=== PATIENT | female | born 1985 | race Caucasian/White ===

== ENCOUNTER 2022-08-31 02:39 | Emergency (ER) | payer OTHER, SELFPAY ==
[2022-08-31 02:41] VITALS: BP 110/77; PULSE 83; RESP 16; TEMP 36.6; O2SAT 99; BMI 27.3
[2022-08-31 02:44] VITALS: BMI 27.3
--- NOTE | 2022-08-31 02:47 | XR_ITS ---
PROCEDURE INFORMATION: Exam: XR Right Humerus Exam date and time: 08/31/2022 2:55 AM Age: 37 years old Clinical indication: Right; Patient HX: Patient states she felt a pop. C/O pain upper arm; Additional info: Accident TECHNIQUE: Imaging protocol: Radiologic exam of the right humerus. Views: 2 or more views. COMPARISON: CR XR SHOULDER RT MIN 2V 08/31/2022 2:54 AM FINDINGS: Bones/joints: Normal. Soft tissues: Normal. IMPRESSION: No acute findings.
--- NOTE | 2022-08-31 02:47 | XR_ITS ---
PROCEDURE INFORMATION: Exam: XR Right Forearm Exam date and time: 08/31/2022 3:04 AM Age: 37 years old Clinical indication: Right; Patient HX: Patient states she felt a pop. C/O pain upper arm; Additional info: Injury TECHNIQUE: Imaging protocol: Radiologic exam of the right forearm. Views: 2 views. COMPARISON: CR XR HAND RT MIN 3V 08/31/2022 3:00 AM FINDINGS: Bones/joints: Normal. Soft tissues: Normal. IMPRESSION: No acute findings.
--- NOTE | 2022-08-31 02:47 | XR_ITS ---
PROCEDURE INFORMATION: Exam: XR Right Shoulder Exam date and time: 08/31/2022 2:54 AM Age: 37 years old Clinical indication: Shoulder; Right; Patient HX: Patient states she felt a pop. C/O pain upper arm; Additional info: Injury TECHNIQUE: Imaging protocol: Radiologic exam of the right shoulder. Views: 2 or more views. COMPARISON: No relevant prior studies available. FINDINGS: Bones/joints: Normal. Soft tissues: Normal. IMPRESSION: No acute findings.
--- NOTE | 2022-08-31 02:47 | XR_ITS ---
PROCEDURE INFORMATION: Exam: XR Right Hand Exam date and time: 08/31/2022 3:00 AM Age: 37 years old Clinical indication: Right; Patient HX: States she felt a pop at work. C/O pain upper arm; Additional info: Injury TECHNIQUE: Imaging protocol: Radiologic exam of the right hand. Views: 3 or more views. COMPARISON: CR XR WRIST RT MIN 3V 08/31/2022 2:59 AM FINDINGS: Bones/joints: Normal. Soft tissues: Normal. IMPRESSION: No acute findings.
--- NOTE | 2022-08-31 02:47 | XR_ITS ---
PROCEDURE INFORMATION: Exam: XR Right Wrist Exam date and time: 08/31/2022 2:59 AM Age: 37 years old Clinical indication: Right; Patient HX: Patient states she felt a pop. C/O pain upper arm; Additional info: Injury TECHNIQUE: Imaging protocol: Radiologic exam of the right wrist. Views: 3 or more views. COMPARISON: No relevant prior studies available. FINDINGS: Bones/joints: Normal. Soft tissues: Normal. IMPRESSION: No acute findings.
[2022-08-31 03:00] VITALS: BP 114/71; PULSE 89; O2SAT 99
[2022-08-31 03:30] VITALS: BP 109/65; PULSE 90; O2SAT 99
--- NOTE | 2022-08-31 05:15 | HMH.EDUPEXT ---
Discharge Plan Disposition Patient Disposition: Home, Self-Care Prescriptions Prescriptions: New meloxicam 15 mg tablet 15 mg PO DAILY Qty: 10 0RF Referrals Follow up/Referrals: Provider,Referral, MD [Primary Care Provider] - See instructions Clinical Impressions Clinical Impression: Upper extremity injury Instructions Patient Instructions: DI for Shoulder Pain Discharge ED Provider: Abhishek (ED)[facility] Upper Extremity HPI General Chief Complaint: Extremity Injury, Upper Stated Complaint: Right arm/shoulder pain; WC 08/31/22 Time Seen by Provider: 08/31/22 04:00 Mode of Arrival: Ambulatory Source of Information: Patient and Medical Record Limitations: No Limitations Description of Symptoms (Recalled from ER Triage Doc. by RN): pt states was trying to get a roll of tape unwedged from under steps and feel something pop History of Present Illness HPI narrative: acute injury at work - pulling and heard pop rt shoulder and now with dec rom complaint: injury to: right and shoulder Onset (ago): hour(s) Other Extremity Injury: Right: shoulder Other injuries: none Handedness: right Place: work Severity: moderate Exacerbating factors: movement of extremity Associated symptoms: denies other symptoms Related Data Previous Rx's Medication Instructions Recorded meloxicam 15 mg tablet 15 mg PO DAILY #10 tabs 08/31/22 Allergies Allergy/AdvReac Type Severity Reaction Status Date / Time No Known Allergies Allergy Verified 08/31/22 02:46 [facility] Disclaimer: The information contained in this section may have been updated after the patient was seen, as this information can be updated by other users. Social History Smoking Status: Never smoker alcohol intake: never current occupational status: employed Travel in the last 8 weeks: None ROS Obtained: Yes All systems reviewed & no additional complaints except as documented Physical Exam General General appearance: alert Head Head exam: normocephalic Eye Eye exam: Present PERRL and EOMI ENT ENT exam: Present mucous membranes moist Neck Neck exam: Present trachea midline Respiratory Respiratory exam: Absent respiratory distress Cardiovascular Cardiovascular exam: Present regular rate Abdominal Exam Abdominal exam: Present soft Expanded Upper Extremity Exam Right: Shoulder exam: Present tenderness; Absent full ROM or dislocation Elbow exam: Present tenderness Hand exam: Absent tenderness Neuromotor exam: Normal wrist extension Neurosensory exam: Normal radial nerve Vascular exam: Normal capillary refill and radial pulse Neurological Exam Neurological exam: Present alert, oriented X3 and CN II-XII intact; Absent motor sensory deficit Psychiatric Psychiatric exam: Present normal affect Skin Skin exam: Absent rash Medical Decision Making Medical Records Medical records reviewed: Yes I reviewed the patient's medical records. Vinod Inquiry Pt receiving controlled substance: No Vital Signs: 08/31/22 02:41 08/31/22 03:00 08/31/22 03:30 Temperature 98 F Temperature Source Oral Pulse Rate 89 90 Pulse Rate [Right] 83 Respiratory Rate 16 Blood Pressure 114/71 109/65 L Blood Pressure [Right Arm] 110/77 Blood Pressure Mean [Right Arm] 88 02 Sat by Pulse Oximetry 99 99 99 Oxygen Delivery Method Room Air Room Air 08/31/22 05:21 Temperature 98 F Temperature Source Oral Pulse Rate 87 Pulse Rate [Right] Respiratory Rate 16 Blood Pressure 112/72 Blood Pressure [Right Arm] Blood Pressure Mean [Right Arm] 02 Sat by Pulse Oximetry Oxygen Delivery Method Lab Data Lab results reviewed: Yes I reviewed the patient's lab results. Orders (Tests/Meds): ED MEDICATIONS Discontinued Medications Generic Name Dose Route Start Last Admin Trade Name Elvis PRN Reason Stop Dose Admin Acetaminophen 1,000 mg 08/31/22 03:39 08/31/22 03:40 Acetaminophen 500m
[2022-08-31 05:21] VITALS: BP 112/72; PULSE 87; RESP 16; TEMP 36.6; O2SAT 99
== END 2022-08-31 05:44 | disposition home or self-care (01) ==
PROVIDERS: Emergency Provider Emergency Medicine
DX: S49.91XA Unspecified injury of right shoulder and upper arm, initial encounter (principal); X50.1XXA Overexertion from prolonged static or awkward postures, initial encounter; Y99.0 Civilian activity done for income or pay
CPT/HCPCS: 73030; 73060; 73090; 73110; 73130; 99284; 99285

== ENCOUNTER 2023-05-24 22:02 | Outpatient (CLI) | payer BC, SELFPAY | END 2023-05-24 23:59 | LOC: LAB.DROPOF 22:02 | PROVIDERS: PCP Family Medicine; Visit Provider Family Medicine | DX: R50.9 Fever, unspecified (principal); R51.9 Headache, unspecified; R07.9 Chest pain, unspecified; R11.10 Vomiting, unspecified | CPT/HCPCS: 87635 ==